=== PATIENT | male | born 1970 | race Caucasian/White ===

== ENCOUNTER 2018-10-19 14:50 | Emergency (ER) | payer OTHER ==
[~2018-10-19] VITALS: Ht 172.7 cm; Wt 90.0 kg
[~2018-10-19 14:50] MED LIST: LISI-604 PO; LORA-249 PO; METO-539 PO; SERT25TA PO; SODI1TAB3 PO; TAMS-11 PO; TEMA30CA5 PO
[2018-10-19] MEDS ORDERED: ASPIRIN 81MG TABLET PO ONE (17:15)
[2018-10-19 17:37] LABS: BASOPHILS % 0.6 % (0.0-2.0); EOSINOPHILS % 2.4 % (0.0-5.0); HEMATOCRIT. 38.9 % (42.0-52.0); HEMOGLOBIN. 12.9 g/dL (14.0-18.0); LYMPHOCYTES % 18.6 % (20.0-50.0); MEAN CORPUSCULAR HEMOGLOBIN 26.4 pg (28.0-32.0); MEAN CORPUSCULAR VOLUME 79.8 fL (80.0-94.0); MEAN PLATELET VOLUME 8.4 fl (7.4-10.4); MONOCYTES % 10.5 % (2.0-8.0); NEUTROPHILS % 67.9 % (40.0-76.0); PLATELET 241 x1000/uL (130-400); RED BLOOD CELL COUNT 4.88 mill/uL (4.7-6.1); RED CELL DISTRIBUTION WIDTH 17.6 % (11.6-14.6)
[2018-10-19 17:44] LABS: CHLORIDE 104 mEq/L (98-107)
[2018-10-19 19:21] VITALS: BP 134/80
[2018-10-19] MEDS ORDERED: SODIUM CHLORIDE 0.9% 1,000 ML IV ONE (20:15)
[2018-10-19] MEDS: QUETIAPINE FUMARATE 25MG TABLET PO SCH ×2 (20:23→21:43)
== END 2018-10-19 21:45 | disposition home or self-care (01) ==
LOC: ER 14:50
DX: F41.8 Other specified anxiety disorders (principal); M94.0 Chondrocostal junction syndrome [Tietze]; E87.1 Hypo-osmolality and hyponatremia; E86.0 Dehydration; D50.9 Iron deficiency anemia, unspecified; R00.0 Tachycardia, unspecified; R42 Dizziness and giddiness; E83.51 Hypocalcemia; I10 Essential (primary) hypertension; Z98.2 Presence of cerebrospinal fluid drainage device
CPT/HCPCS: 36415; 71045; 80053; 83735; 83880; 84484; 85025; 93005; 96360; 99284; J7030

== ENCOUNTER 2018-10-26 10:21 | Emergency (ER) | payer OTHER ==
[~2018-10-26] VITALS: Ht 167.6 cm; Wt 80.0 kg
[2018-10-26] MEDS ORDERED: SODIUM CHLORIDE 0.9% 1,000 ML IV ONE (10:45)
[2018-10-26 11:50] LABS: BASOPHILS % 0.6 % (0.0-2.0); EOSINOPHILS % 1.5 % (0.0-5.0); HEMATOCRIT. 41.7 % (42.0-52.0); HEMOGLOBIN. 13.9 g/dL (14.0-18.0); LYMPHOCYTES % 17.7 % (20.0-50.0); MEAN CORPUSCULAR HEMOGLOBIN 26.5 pg (28.0-32.0); MEAN CORPUSCULAR VOLUME 79.7 fL (80.0-94.0); MEAN PLATELET VOLUME 7.6 fl (7.4-10.4); MONOCYTES % 8.1 % (2.0-8.0); NEUTROPHILS % 72.1 % (40.0-76.0); PLATELET 263 x1000/uL (130-400); RED BLOOD CELL COUNT 5.24 mill/uL (4.7-6.1); RED CELL DISTRIBUTION WIDTH 17.6 % (11.6-14.6)
[2018-10-26 11:58] LABS: INR 1.1; PARTIAL THROMBOPLASTIN TIME 30.6 sec (23.4-31.0); PROTHROMBIN TIME 11.4 sec (9.6-11.0)
[2018-10-26 12:00] LABS: CHLORIDE 99 mEq/L (98-107)
[2018-10-26 12:16] LABS: CLARITY URINE CLEAR (CLEAR); COLOR URINE YELLOW (YELLOW); KETONES URINE TRACE (NEGATIVE); LEUKOCYTE ESTERASE URINE NEGATIVE (NEGATIVE); NITRITE URINE NEGATIVE (NEGATIVE); OCCULT BLOOD URINE NEGATIVE (NEGATIVE); PH URINE 6.5 (4.5-8.0); PROTEIN URINE NEGATIVE (NEGATIVE); SPECIFIC GRAVITY URINE 1.015 (1.005-1.030)
[2018-10-26] MEDS ORDERED: SODIUM CHLORIDE 0.45% 1,000 ML IV SCH (13:21)
[2018-10-26] MEDS ORDERED: NA PHOS,M-B/NA PHOS,DI-BA ENEMA 118ML PR PRN (13:30)
[2018-10-26] MEDS ORDERED: ONDANSETRON HCL 4MG/2ML INJ IV PRN (13:30)
[2018-10-26] MEDS ORDERED: ENOXAPARIN 40MG/0.4ML SYR SUBCUT SCH (13:30)
[2018-10-26] MEDS ORDERED: CLONIDINE 0.1MG TABLET PO PRN (13:30)
[2018-10-26] MEDS ORDERED: HYDROCODONE/ACETAMINOPHEN 5/325MG TABLET PO PRN (13:30)
[2018-10-26] MEDS ORDERED: GUAIFENESIN 200MG/10ML SUGAR FREE UDC PO PRN (13:30)
[2018-10-26] MEDS ORDERED: LORAZEPAM 0.5MG TABLET PO PRN (13:30)
[2018-10-26] MEDS ORDERED: IPRATROPIUM/ALBUTEROL 0.5-3(2.5)MG/3ML NEB NEB PRN (13:30)
[2018-10-26] MEDS ORDERED: DOCUSATE SODIUM 100MG CAPSULE PO PRN (13:30)
[2018-10-26] MEDS ORDERED: MAGNESIUM/ALUMINUM HYDROXIDE/SIMETHICONE 30ML UDC PO PRN (13:30)
[2018-10-26] MEDS ORDERED: HYDROMORPHONE HCL/PF 2MG/ML CPJ IV PRN (13:30)
[2018-10-26] MEDS ORDERED: KETOROLAC 30MG/ML VIAL IV ONE (13:30)
[2018-10-26 14:21] VITALS: BP 142/68
[2018-10-27] MEDS ORDERED: ASPIRIN 81MG EC TABLET PO SCH (09:00)
== END 2018-10-26 14:32 | disposition home or self-care (01) ==
LOC: ER 10:21
DX: R10.30 Lower abdominal pain, unspecified (principal); R33.9 Retention of urine, unspecified; G93.41 Metabolic encephalopathy; E86.0 Dehydration; I10 Essential (primary) hypertension; D64.9 Anemia, unspecified; G40.909 Epilepsy, unspecified, not intractable, without status epilepticus; Z98.2 Presence of cerebrospinal fluid drainage device
CPT/HCPCS: 36415; 51702; 74176; 80053; 81003; 83690; 85025; 85610; 85730; 87086; 96361; 96374; 99284; J1885; J7030; A4315

== ENCOUNTER 2018-10-26 15:54 | Emergency (ER) | payer OTHER ==
[~2018-10-26] VITALS: Ht 160 cm; Wt 70.0 kg
[2018-10-26 18:03] VITALS: BP 132/70
== END 2018-10-26 23:04 | disposition left against medical advice (07) ==
LOC: ER 15:54
DX: Z53.21 Procedure and treatment not carried out due to patient leaving prior to being seen by health care provider (principal)

== ENCOUNTER 2018-11-19 15:42 | Emergency (ER) | payer OTHER ==
[~2018-11-19] VITALS: Ht 167.6 cm; Wt 80.0 kg
[2018-11-19 19:03] LABS: BASOPHILS % 1.1 % (0.0-2.0); EOSINOPHILS % 3.2 % (0.0-5.0); HEMATOCRIT. 41.2 % (42.0-52.0); HEMOGLOBIN. 13.5 g/dL (14.0-18.0); LYMPHOCYTES % 18.7 % (20.0-50.0); MEAN CORPUSCULAR HEMOGLOBIN 25.8 pg (28.0-32.0); MEAN PLATELET VOLUME 7.1 fl (7.4-10.4); MONOCYTES % 8.7 % (2.0-8.0); NEUTROPHILS % 68.3 % (40.0-76.0); PLATELET 247 x1000/uL (130-400); RED BLOOD CELL COUNT 5.21 mill/uL (4.7-6.1); RED CELL DISTRIBUTION WIDTH 16.8 % (11.6-14.6)
[2018-11-19 19:08] LABS: CHLORIDE 104 mEq/L (98-107)
[2018-11-19 19:12] LABS: ETHANOL BLOOD < 10 mg/dL
[2018-11-19] MEDS ORDERED: LORAZEPAM 1MG TABLET PO ONE (20:15)
[2018-11-19] MEDS ORDERED: ACETAMINOPHEN 325MG TABLET PO ONE (22:45)
[2018-11-19] MEDS ORDERED: IBUPROFEN 600MG TABLET PO ONE (23:15)
[2018-11-20] MEDS: QUETIAPINE FUMARATE 25MG TABLET PO SCH ×2 (04:57→10:32)
[2018-11-20 13:09] LABS: METHADONE URINE SCREEN NEGATIVE (NEGATIVE); OPIATES URINE SCREEN NEGATIVE (NEGATIVE)
[2018-11-20 13:10] LABS: *AMPHETAMINES SCREEN URINE NEGATIVE (NEGATIVE); *BARBITURATES SCREEN URINE NEGATIVE (NEGATIVE); *BENZODIAZEPINES SCREEN URINE NEGATIVE (NEGATIVE); *COCAINE SCREEN URINE NEGATIVE (NEGATIVE); CANNABINOID URINE SCREEN NEGATIVE (NEGATIVE); PHENCYCLIDINE URINE SCREEN NEGATIVE (NEGATIVE)
[2018-11-20 19:50] VITALS: BP 140/94
== END 2018-11-20 20:21 | disposition home or self-care (01) ==
LOC: ER 15:42
DX: R45.851 Suicidal ideations (principal); F41.8 Other specified anxiety disorders; Z73.3 Stress, not elsewhere classified; R07.89 Other chest pain; I69.998 Other sequelae following unspecified cerebrovascular disease; R20.0 Anesthesia of skin; Z86.73 Personal history of transient ischemic attack (TIA), and cerebral infarction without residual deficits; Z98.2 Presence of cerebrospinal fluid drainage device; Z59.0 Homelessness
CPT/HCPCS: 36415; 71045; 80305; 80307; 80320; 80329; 84484; 93005; 99284; G0480